=== PATIENT | male | born 1980 | race Caucasian/White ===

== ENCOUNTER 2020-09-04 09:09 | Outpatient (REF) | payer OTHER, SELFPAY ==
--- NOTE | 2020-09-04 | XR_ITS ---
EXAMINATION: XR CHEST CLINICAL INFORMATION: Right lateral and anterior chest pain COMPARISON: None TECHNIQUE: 2 views of the chest were obtained. FINDINGS: No significant abnormality is noted involving the heart, lungs, mediastinum, bony thorax or soft tissues. XR/XR chest 2V IMPRESSION: Unremarkable chest examination.
== END 2020-09-04 09:10 | disposition home or self-care (01) ==
LOC: HO.XRAY 09:09
PROVIDERS: PCP Nurse Practitioner Primary Care; Visit Provider Nurse Practitioner Primary Care
DX: U07.1 COVID-19 (principal)
CPT/HCPCS: 71046

== ENCOUNTER → 2020-12-03 11:33 | Outpatient (BNVA) | payer OTHER, SELFPAY | PROVIDERS: PCP Nurse Practitioner Primary Care; Visit Provider Physician Assistant ==

== ENCOUNTER 2020-12-26 10:25 | Day surgery (SDC) | payer OTHER, SELFPAY ==
[2020-12-26 10:48] VITALS: BP 147/84; PULSE 65; RESP 19; TEMP 36.6; O2SAT 97; BMI 45.6
--- NOTE | 2020-12-26 10:50 | P.CONAN_ITS ---
HPI - Anesthesia Eval Consult details Narrative: 40 yo male patient here for colonoscopy PMFSH Active Problems Active Problems: All Active Problems (Updated 12/23/20 @ 13:29 by Sandra Hernandez) Joint pain (Acute) Acid reflux (Acute) Past Medical History Medical History (Updated 12/26/20 @ 11:01 by [place]) Acid reflux Increased BMI Joint pain BI (obstructive sleep apnea) Personal history of COVID-19 Family History Family History (Updated 12/03/20 @ 12:17 by Apryl Ta PA-C) Father Dementia Mother Diabetes Family history of problems with anesthesia: No Surgical History Surgical History (Updated 12/23/20 @ 13:29 by Sandra Hernandez) Hx of arthroscopy of left knee (~12/05/15) Hx of arthroscopy of right knee Hx of hand surgery History of Problems with Anesthesia: No Social History Social History (Updated 12/23/20 @ 13:31 by Sandra Hernandez) Household Members: Spouse and Children Alcohol intake: current Alcohol intake frequency: holidays/special occasions only Smoking Status: Never smoker Advance Directives Information Provided: No Current occupation: [employer] Allergies Allergy/AdvReac Type Severity Reaction Status Date / Time No Known Allergies Allergy Verified 12/03/20 11:33 Home Medications Medication Instructions Recorded Confirmed Last Taken Type albuterol sulfate 90 mcg/actuation 2 puff PO Q4-6H PRN 12/03/20 12/23/20 Unknown History aerosol inhaler omeprazole 20 mg capsule,delayed 20 mg PO DAILY 12/03/20 12/23/20 Unknown History release Exam Exam Date and Time: December 26, 2020 1050 Height,Weight and Vital Signs: Height 5 ft 8 in Weight 136.078 kg Last Vital Signs Temp 97.8 F 12/26/20 10:48 Pulse 65 12/26/20 10:48 Resp 19 12/26/20 10:48 BP 147/84 H 12/26/20 10:48 Pulse Ox 97 12/26/20 10:48 Airway Mallampati Class: III TM Dist: >3cm Neck ROM: Full Loose/Missing/Broken Teeth: Yes (Broken bottom right) Heart: RRR Lungs: CTAB Assessment and Plan Assessment Anesthesia Assessment: Anesthesia Plan Discussed and Chart Reviewed Final Anesthetic Review NPO: Yes ASA Class: III Final Preanesthetic Review: No Changes in Pt Med Stat, Meds/Allgs Chart Reviewed, Consent Obtained/Reviewed and Anes Risks/Benef Reviewed Patient Risk: Intermediate Procedure Risk: Low Assessment/Block/Sedation in SS: Assess/Block/Sedation-SS Anesthetic Plan Anesthetic Plan: MAC: Disposition: Standard PACU
--- NOTE | 2020-12-26 10:56 | MHC.SHP ---
Pre-Procedural Eval Section B Chief Complaint: GERD Relevant Family History (Specify if Yes): No Relevant Social History: None Present Medications: see Short Stay Collaborative assessment Medical History: Significant History (BI, reflux) History of Previous Operations: Relevant previous surgery/procedure and date(s) (Hx of arthroscopy of left knee (~12/05/15) Hx of arthroscopy of right knee Hx of hand surgery) Allergies: Allergies Allergy/AdvReac Type Severity Reaction Status Date / Time No Known Allergies Allergy Verified 12/03/20 11:33 Review of Systems Sugical H&P ROS: Negative: Constitution, Cardiovascular, Respiratory, Neurological, Psychiatric, Hem-Onc, Allergic/Immunologic, Gastrointestinal, Genitourinary, Musculoskeletal, Integumentary, Endocrine and Eyes/Ears/Nose/Throat Exam Surgical H&P Exam: Normal: HEENT, Normal: Heart, Normal: Lungs, Normal: Extremities, Normal: Abdomen, Normal: Skin and Normal: Neurological Plan Diagnosis/Plan: Unchanged I have reviewed the history and physical and performed a pertinent physical examination on my patient. No changes have occurred unless specified.
--- NOTE | 2020-12-26 10:58 | W.PM.OPN ---
Operative Note Operative Note Date of Service: 12/26/20 Narrative: Procedure Description: EGD FLEXIBLE TRANSORAL UPPER GASTROINTESTINAL ENDOSCOPY UPPER ENDOSCOPY Consent: Indications for the procedure and potential complications of bleeding, perforation, reaction to medications and missed diagnosis were discussed with the patient and informed consent was obtained. Instrument: Olympus GIF H 190 J mid size upper endoscope Monitoring: Vital signs and clinical assessment, continuous EKG monitoring, Pulse oximetry, Carbon Dioxide monitoring and blood pressure monitoring were done throughout the procedure. Procedure: The patient was placed in the left lateral decubitis position and pre-procedure medications were administered and a bite block was placed. The endoscope was inserted into the mouth and advanced under direct vision to the third part of duodenum. A careful inspection was made as the upper endoscope was withdrawn including a retroflexed examination of the proximal stomach; Findings and interventions are described below. Findings: Larynx:normal Esophagus: GE junction at 40 cm, diaphragm hiatus at 40 cm, mild esophagitis with irregular Z line-bx taken. Also bx taken from random esophagus Stomach: Normal mucosa. Biopsies were obtained to r/o h pylori. Grade 2 flap valve on retroflexed examination of the cardia. Duodenum: Normal bulb and descending duodenum, Intervention: Biopsies as noted above Impression/Findings: esophagitis PLAN: cont with omeprazole since works well GERD lifestyle changes if h pylori pos then treat
--- NOTE | 2020-12-26 10:58 | PM.OP ---
Brief Operative Note Date of Service: 12/26/20 Pre-op diagnosis: GERD Post-op diagnosis: same Procedure: see op note Surgeon: Smith Andres MD Anesthesia: MAC Estimated blood loss (mL): 0 Condition: stable Disposition: PACU
[2020-12-26 11:39] VITALS: BP 132/77; PULSE 74; RESP 16; TEMP 36.9; O2SAT 97
[2020-12-26 11:52] VITALS: BP 141/90; PULSE 72; RESP 18; O2SAT 97
== END 2020-12-26 12:11 | disposition home or self-care (01) ==
PROVIDERS: PCP Nurse Practitioner Primary Care; Visit Provider Internal Medicine Gastroenterology
PROC: 0DJ08ZZ Inspection of Upper Intestinal Tract, Via Natural or Artificial Opening Endoscopic (ICD-10-PCS; CPT 43235; principal; 2020-12-26 11:40)
DX: K21.9 Gastro-esophageal reflux disease without esophagitis (principal); K20.90 Esophagitis, unspecified without bleeding; K44.9 Diaphragmatic hernia without obstruction or gangrene; G47.33 Obstructive sleep apnea (adult) (pediatric); Z79.899 Other long term (current) drug therapy; Z86.16 Personal history of COVID-19
CPT/HCPCS: 43239; 88305; 88342; J2250

== ENCOUNTER → 2021-01-14 10:34 | Outpatient (BNVA) | payer OTHER, SELFPAY | PROVIDERS: PCP Nurse Practitioner Primary Care; Visit Provider Physician Assistant ==

== ENCOUNTER 2021-02-07 15:23 | Outpatient (REF) | payer OTHER, SELFPAY ==
--- NOTE | ~2021-02-07 | XR_ITS ---
EXAMINATION: XR KNEE, RIGHT CLINICAL INFORMATION: Right knee pain. Instability. COMPARISON: None. TECHNIQUE: AP and lateral weightbearing views. Nonweightbearing tunnel and patellar view FINDINGS: No fracture. No dislocation. No joint effusion. No significant degenerative change. No soft tissue calcification or bone erosion. There is a small spur at the origin of the patellar tendon at the inferior pole of the patella. XR/XR knee RT 4V IMPRESSION: No acute abnormality of the knee.
== END 2021-02-07 15:24 | disposition home or self-care (01) ==
LOC: HO.XRAY 15:23
PROVIDERS: Absent Provider Nurse Practitioner Primary Care; PCP Nurse Practitioner Primary Care; Visit Provider Registered Nurse Community Health
DX: M25.561 Pain in right knee (principal); M25.361 Other instability, right knee
CPT/HCPCS: 73564

== ENCOUNTER → 2021-02-25 10:57 | Outpatient (BNVA) | payer OTHER, SELFPAY | PROVIDERS: PCP Nurse Practitioner Primary Care; Visit Provider Orthopaedic Surgery ==

== ENCOUNTER 2021-03-05 07:44 | Outpatient (REF) | payer OTHER, SELFPAY | END 2021-03-05 07:45 | disposition home or self-care (01) | LOC: HO.HOSX 07:44 | PROVIDERS: Visit Provider Orthopaedic Surgery | DX: Z13.89 Encounter for screening for other disorder (principal) ==

== ENCOUNTER → 2021-04-08 13:09 | Outpatient (BNVA) | payer OTHER, SELFPAY | PROVIDERS: PCP Nurse Practitioner Primary Care; Visit Provider Physician Assistant ==

== ENCOUNTER 2021-04-15 11:50 | Emergency (ER) | payer OTHER, SELFPAY ==
--- NOTE | ~2021-04-15 | CT_ITS ---
EXAMINATION: CT abdomen pelvis w con CLINICAL INFORMATION: Reason for Exam RLQ/RUQ/epigstric ttp COMPARISON: 2017 TECHNIQUE: Multidetector volumetric imaging was performed from the superior aspect of the liver through the pubic symphysis 85 mL Omnipaque 350 injected. Sagittal and coronal reformatted images were obtained on the technologist's workstation. This CT examination was performed using dose optimization techniques as appropriate, variously including the following: *Automated exposure control *Adjustment of mA and/or kV according to patient size (this includes techniques or standardized protocols for targeted exams where dose is matched to indication/reason for exam; i.e. extremities or head) *Use of iterative reconstruction technique DLP: 1292 mGy-cm FINDINGS: LOWER THORAX: Included lung bases are clear. HEPATOBILIARY: No focal hepatic lesions. No biliary ductal dilatation. GALLBLADDER: Gallbladder unremarkable. SPLEEN: Spleen is normal in size. PANCREAS: No focal mass or ductal dilatation. STOMACH AND GASTROINTESTINAL TRACT: Stomach is grossly unremarkable. There is no bowel distention or thickening. There is mild diverticulosis without CT evidence of acute diverticulitis. ADRENALS: No adrenal nodules. KIDNEYS/URETERS: There is 4 mm nonobstructing stone in the right kidney. There is no hydronephrosis. There is a 2 mm nonobstructing stone in the left kidney. URINARY BLADDER: Partially decompressed. PELVIC VISCERA: Unremarkable PERITONEUM: No free air or fluid. LYMPH NODES: No lymphadenopathy. VASCULAR:Abdominal aorta normal in size, no aneurysm found. BONES, ABDOMINAL WALL AND SOFT TISSUES: Age-appropriate changes of the spine and skeletal system, no destructive osteolytic or osteosclerotic bone lesion found CT/CT abdomen pelvis w con IMPRESSION: 1. No CT evidence of acute intra-abdominal process to explain patient's pain symptoms, normal appendix. 2. There is diverticulosis without evidence of acute diverticulitis. 3. Bilateral nonobstructing kidney stones. No hydronephrosis.
[2021-04-15 13:02] VITALS: BP 131/83; PULSE 75; RESP 18; TEMP 36.7; O2SAT 95; BMI 49.2
[2021-04-15 14:25] LABS: MANUAL DIFF FLAG NO
[2021-04-15 14:28] LABS: Basophils Percent Auto 0.4 % (0-2); Eosinophils Absolute Auto 0.1 X10*3/uL (0.0-0.4); Eosinophils Percent Auto 1.3 % (0-4); Hematocrit 46.4 % (42-52); Hemoglobin 15.5 g/dl (14.0-18.0); Imm Gran Abs Auto 0.02 X10*3/uL (0.00-0.03); Imm Gran Pct Auto 0.3 % (0.0-0.4); Lymphocytes Absolute Auto 2.5 X10*3/uL (1.2-4.9); Lymphocytes Percent Auto 35.5 % (20-40); Mean Corpuscular HGB Conc 33.4 g/dl (31.0-36.0); Mean Corpuscular Hemoglobin 29.4 pg (27.0-33.0); Mean Corpuscular Volume 87.9 fL (80-98); Mean Platelet Volume 10.2 fL (9.4-12.4); Monocytes Absolute Auto 0.5 X10*3/uL (0.1-1.2); Monocytes Percent Auto 6.9 % (2-11); Neutrophils Absolute Auto 3.8 X10*3/uL (2.0-8.3); Neutrophils Percent Auto 55.6 % (45-73); Platelet Count 306 X10*3/uL (160-400); Red Blood Count 5.28 X10*6/uL (4.60-5.80); Red Cell Distribution Width 11.8 % (11.0-16.0); White Blood Count 6.9 X10*3/uL (4.8-10.8)
[2021-04-15 14:53] LABS: Alanine Aminotransferase 67 U/L (0-40); Albumin Level 4.7 g/dL (3.5-5.0); Alkaline Phosphatase 92 U/L (39-117); Anion Gap 15 (12-20); Aspartate Amino Transferase 35 U/L (5-37); Bilirubin Total 0.4 mg/dL (0.0-1.0); Blood Urea Nitrogen 10 mg/dL (9-16); Calcium 9.6 mg/dL (8.4-10.2); Carbon Dioxide 22 mmol/L (22-29); Chloride 104 mmol/L (96-108); Creatinine Clr Calc Pharmacy 146.1; Estimated Glomerular Filt Rate > 60; Glucose Random 89 mg/dL (60-115); Lipase 24 U/L (8-78); Potassium 4.2 mmol/L (3.3-5.1); Sodium 137 mmol/L (135-145); Total Protein 7.9 g/dL (6.5-8.0)
--- NOTE | 2021-04-15 16:33 | ED_ITS ---
HPI - Abdominal Pain General Chief Complaint: Abdominal Pain Stated Complaint: abd pain Time Seen by Provider: 04/15/21 16:22 Source: patient Mode of arrival: ambulatory History of Present Illness HPI narrative: 40-year-old male with a past medical history of GERD, BI, presenting to the ED complaining of RUQ/epigastric and RLQ abdominal pain x4 days with associated nausea and constipation. Reports diarrhea after taking MiraLax/OTCs. Denies fever, chills, vomiting, dysuria/hematuria, suspicious food intake, recent travel MD elicited complaint: abdominal pain Related Data Home Medications Medication Instructions Recorded Confirmed albuterol sulfate 90 mcg/actuation 2 puff PO Q4-6H PRN 12/03/20 04/02/21 aerosol inhaler ibuprofen 800 mg tablet 800 mg PO Q8H 02/25/21 04/02/21 Previous Rx's Medication Instructions Recorded omeprazole 20 mg capsule,delayed 20 mg PO DAILY #30 cap 01/14/21 release aluminum-mag hydroxide-simethicone 5 ml PO 5XD PRN #30 ml 04/15/21 200 mg-200 mg-20 mg/5 mL oral susp (Maalox Advanced) famotidine 20 mg tablet (Pepcid) 20 mg PO DAILY #14 tab 04/15/21 Allergies Allergy/AdvReac Type Severity Reaction Status Date / Time Seasonal Allergies AdvReac Unknown Verified 02/25/21 11:07 Review of Systems Review of Systems Constitutional: No Fever, No Chills, No Fatigue, No Malaise ENT/Mouth: No Ear Pain, No Nasal Congestion, No sore throat, No Rhinorrhea, No Swallowing Difficulty Eyes: No Eye Pain, No Discharge Cardiovascular: No Chest Pain, No SOB, No Palpitations Respiratory: No Cough, No Dyspnea Gastrointestinal: + Nausea, No Vomiting, No Diarrhea, + Constipation, + Abdominal pain Genitourinary: No Dysuria, No Urinary Frequency, No Hematuria, No Flank Pain, No Urinary Flow Changes Musculoskeletal: No joint pain, No Myalgias, No Joint Swelling Skin: No Skin Lesions, No rash Neuro: No Weakness, No Numbness, No Paresthesias Yes all other systems are reviewed and are negative Physical Exam Vital Signs: Vital Signs: Last Vital Signs Temp 98.1 F 04/15/21 13:02 Pulse 75 04/15/21 13:02 Resp 18 04/15/21 13:02 BP 131/83 04/15/21 13:02 Pulse Ox 95 04/15/21 13:02 Body Mass Index 49.2 Const: General: cooperative and healthy appearing Orientation/consciousness: patient oriented x3 Limitations: no limitations HENMT: Head: Yes normal to inspection and Yes atraumatic Ears: hearing grossly normal bilaterally General nose exam: Normal external nose present Face and sinus: Yes normal facial exam Eyes: General: appearance normal, both eyes and all related structures EOM: EOMs intact bilaterally Neck: Neck: Yes normal visual inspection Resp: Effort & Inspection: normal respiratory effort Cardio: Rate: regular rate GI: Inspection: Yes normal to inspection Palpation (GI): Soft to palpation, Tenderness to palpation present (GI) in the epigastrum, in the RLQ and in the RUQ, no guarding and not rigid : General: Yes CVA tenderness on the right Back/Spine/Pelvis: Back: CVA tenderness Skin: Rashes: no rashes Wounds: no wounds Neuro: General: patient oriented x3 Gait exam (Neuro): Normal gait present Extrem: General: Yes normal to inspection Course Course Course Narrative: -1848--no leukocytosis, ALT mildly elevated, labs otherwise unremarkable -UA negative CT abdomen pelvis w con IMPRESSION: 1. No CT evidence of acute intra-abdominal process to explain patient's pain symptoms, normal appendix. 2. There is diverticulosis without evidence of acute diverticulitis. 3. Bilateral nonobstructing kidney stones. No hydronephrosis. >> results discussed with patient including worrisome signs and symptoms and strict return precautions. Patient is to follow-up with PCP/GI, he verbalized understanding of is safe for discharge home MDM - Abdominal Pain MDM Narrative Medical decision making narrative: 40-year-old male with a past medical history of GERD, BI, presenting to the ED complaining of RUQ/epigastric and RLQ abdominal pain x4 days with associated nausea and constipation. On exam VSS, NAD/well appearing, abdomen soft with RUQ/epigastric and RLQ tenderness to palpation. R CVAT on exam as well. Concern for appendicitis vs cholecystitis/cholelithiasis or pancreatitis vs renal stone. Plan: Labs, UA, CT, IVF, symptomatic treatment, reassess Medical Records Attestation: I reviewed the patient's medical records. Lab Data Attestation: I reviewed the patient's lab results. Result diagrams: 04/15/21 14:16 04/15/21 14:16 Labs: Lab Results 04/15/21 04/15/21 04/15/21 Range/Units 14:16 14:16 14:16 WBC 6.9 (4.8-10.8) X10*3/uL RBC 5.28 (4.60-5.80) X10*6/uL Hgb 15.5 (14.0-18.0) g/dl Hct 46.4 (42-52) % MCV 87.9 (80-98) fL MCH 29.4 (27.0-33.0) pg MCHC 33.4 (31.0-36.0) g/dl RDW 11.8 (11.0-16.0) % Plt Count 306 (160-400) X10*3/uL MPV 10.2 (9.4-12.4) fL Immature Gran % (Auto) 0.3 (0.0-0.4) % Neut % (Auto) 55.6 (45-73) % Lymph % (Auto) 35.5 (20-40) % [place] % (Auto) 6.9 (2-11) % Eos % (Auto) 1.3 (0-4) % Baso % (Auto) 0.4 (0-2) % Lymph # (Auto) 2.5 (1.2-4.9) X10*3/uL [place] # (Auto) 0.5 (0.1-1.2) X10*3/uL Eos # (Auto) 0.1 (0.0-0.4) X10*3/uL Baso # (Auto) 0.0 (0.0-0.2) X10*3/uL Abs Immat Gran (auto) 0.02 (0.00-0.03) X10*3/uL Absolute Neuts (auto) 3.8 (2.0-8.3) X10*3/uL Absolute Nucleated RBC 0.000 (0.0-0.012) X10*3/uL Nucleated RBC % (auto) 0.0 (0.0-0.2) /100WBC Sodium 137 (135-145) mmol/L Potassium 4.2 (3.3-5.1) mmol/L Chloride 104 (96-108) mmol/L Carbon Dioxide 22 (22-29) mmol/L Anion Gap 15 (12-20) BUN 10 (9-16) mg/dL Creatinine 0.93 (0.5-1.4) mg/dL Estim Creat Clear Calc 146.1 Estimated GFR > 60 Random Glucose 89 (60-115) mg/dL Calcium 9.6 (8.4-10.2) mg/dL Magnesium 2.3 (1.6-2.6) mg/dL Total Bilirubin 0.4 (0.0-1.0) mg/dL AST 35 (5-37) U/L ALT 67 H (0-40) U/L Alkaline Phosphatase 92 (39-117) U/L Total Protein 7.9 (6.5-8.0) g/dL Albumin 4.7 (3.5-5.0) g/dL Lipase 24 (8-78) U/L Urine Color Urine Appearance Urine pH (5.0-8.0) Ur Specific [place] (1.005-1.025) Urine Protein (NEG-TRACE) MG/DL Urine Glucose (UA) (NEG) MG/DL Urine Ketones (NEG) MG/DL Urine Blood (NEG) Urine Nitrite (NEG) Ur Leukocyte Esterase (NEG) 04/15/21 Range/Units 18:00 WBC (4.8-10.8) X10*3/uL RBC (4.60-5.80) X10*6/uL Hgb (14.0-18.0) g/dl Hct (42-52) % MCV (80-98) fL MCH (27.0-33.0) pg MCHC (31.0-36.0) g/dl RDW (11.0-16.0) % Plt Count (160-400) X10*3/uL MPV (9.4-12.4) fL Immature Gran % (Auto) (0.0-0.4) % Neut % (Auto) (45-73) % Lymph % (Auto) (20-40) % [place] % (Auto) (2-11) % Eos % (Auto) (0-4) % Baso % (Auto) (0-2) % Lymph # (Auto) (1.2-4.9) X10*3/uL [place] # (Auto) (0.1-1.2) X10*3/uL Eos # (Auto) (0.0-0.4) X10*3/uL Baso # (Auto) (0.0-0.2) X10*3/uL Abs Immat Gran (auto) (0.00-0.03) X10*3/uL Absolute Neuts (auto) (2.0-8.3) X10*3/uL Absolute Nucleated RBC (0.0-0.012) X10*3/uL Nucleated RBC % (auto) (0.0-0.2) /100WBC Sodium (135-145) mmol/L Potassium (3.3-5.1) mmol/L Chloride (96-108) mmol/L Carbon Dioxide (22-29) mmol/L Anion Gap (12-20) BUN (9-16) mg/dL Creatinine (0.5-1.4) mg/dL Estim Creat Clear Calc Estimated GFR Random Glucose (60-115) mg/dL Calcium (8.4-10.2) mg/dL Magnesium (1.6-2.6) mg/dL Total Bilirubin (0.0-1.0) mg/dL AST (5-37) U/L ALT (0-40) U/L Alkaline Phosphatase (39-117) U/L Total Protein (6.5-8.0) g/dL Albumin (3.5-5.0) g/dL Lipase (8-78) U/L Urine Color YELLOW Urine Appearance CLEAR Urine pH 6.0 (5.0-8.0) Ur Specific Kil[place] <= 1.005 (1.005-1.025) Urine Protein NEG (NEG-TRACE) MG/DL Urine Glucose (UA) NEG (NEG) MG/DL Urine Ketones NEG (NEG) MG/DL Urine Blood NEG (NEG) Urine Nitrite NEG (NEG) Ur Leukocyte Esterase NEG (NEG) Discharge Plan Discharge Clinical Impression: Abdominal pain Qualifiers: Abdominal location: right lower quadrant Qualified Code(s): R10.31 - Right lower quadrant pain Patient Disposition: Home, Self-Care Instructions: Abdominal Pain (ED) Additional Instructions: Your blood work and CT scan were reassuring, did not show any acute abnormalities new line your urine was negative Maalox and Pepcid will help with acid reduction it is important that you follow-up with her primary care doctor If her symptoms persist or worsen, your abdominal pain becomes more constant/unremitting, you are unable to eat or drink please return to the ED Please follow-up with the GI specialist as needed Prescriptions: New famotidine [Pepcid] 20 mg tablet 20 mg PO DAILY Qty: 14 RF: 0 alum-mag hydroxide-simeth [Maalox Advanced] 200-200-20 mg/5 mL suspension 5 ml PO 5XD PRN (Reason: indigestion) Qty: 30 RF: 0 No Action albuterol sulfate 90 mcg/actuation HFA aerosol inhaler 2 puff PO Q4-6H PRN (Reason: Shortness Of Breath) RF: 0 omeprazole 20 mg capsule,delayed release(DR/EC) 20 mg PO DAILY Qty: 30 RF: 11 Referrals: Niecy Hussein NP [Primary Care Provider] - 2 days Mia Duran MD [Physician] - 1 week PMF Past Medical History Attestation statement: The following information was validated with the patient. Medical History Acid reflux Hx of renal calculi Increased BMI Joint pain BI (obstructive sleep apnea) Personal history of COVID-19 Surgical History History of esophagogastroduodenoscopy (EGD) Hx of arthroscopy of left knee (~12/05/15) Hx of arthroscopy of right knee Hx of hand surgery Family History Family History Father Dementia Mother Diabetes Social History Social History Household Members: Spouse and Children Are you a primary landcare officer to a significant other at home: No Alcohol intake: current Alcohol intake frequency: holidays/special occasions only Patient Tobacco Use Status: Never used Tobacco Current occupation: HVAC
[2021-04-15] MEDS: Ketorolac Tromethamine 15 MG/ML VIAL IVPUSH (16:42)
[2021-04-15] MEDS: 0.9 % Sodium Chloride 1,000 ML 999 ML IVCONT (16:42)
[2021-04-15] MEDS: ondansetron HCL 4 MG/2 ML VIAL IVPUSH (16:42)
[2021-04-15] MEDS: iohexoL 350 MG/ML 100 ML INFUS..BTL IV (17:05)
[2021-04-15 17:48] LABS: Magnesium 2.3 mg/dL (1.6-2.6)
[2021-04-15 18:09] LABS: Glucose Urine UA NEG (NEG); Leukocyte Esterase Urine NEG (NEG); Nitrite Urine NEG (NEG); Specific Gravity - Urine <= 1.005 (1.005-1.025); Urine Blood NEG (NEG); Urine Ketones NEG (NEG); Urine Protein NEG (NEG-TRACE)
[2021-04-15 18:12] LABS: Appearance Urine CLEAR; Color Urine YELLOW
== END 2021-04-15 19:26 | disposition home or self-care (01) ==
PROVIDERS: Physician Assistant; Emergency Provider Emergency Medicine; PCP Nurse Practitioner Primary Care
DX: R10.31 Right lower quadrant pain (principal); R11.0 Nausea
CPT/HCPCS: 36415; 74177; 80053; 81003; 83690; 83735; 85025; 96361; 96374; 96375; 99284; J1885; J2405; Q9967

== ENCOUNTER 2021-04-17 07:48 | Day surgery (SDC) | payer OTHER, SELFPAY ==
[2021-04-02 15:17] VITALS: BMI 45.7
--- NOTE | 2021-04-07 14:00 | HO.ANESPROP2 ---
HPI - Anesthesia Eval Consult details Narrative: 40yo M for Right Knee Arthroscopy PMFSH Active Problems Active Problems: All Active Problems (Updated 04/02/21 @ 15:21 by Sandra Hernandez) Complex tear of medial meniscus of right knee as current injury (Acute) Increased BMI (Acute) BI (obstructive sleep apnea) (Acute) Joint pain (Acute) Acid reflux (Acute) Past Medical History Medical History (Updated 04/02/21 @ 15:21 by Sandra Hernandez) Acid reflux Hx of renal calculi Increased BMI Joint pain BI (obstructive sleep apnea) Personal history of COVID-19 Family History Family History (Reviewed 02/25/21 @ 11:09 by Alicia Kurtz [facility]) Father Dementia Mother Diabetes Family history of problems with anesthesia: No Surgical History Surgical History (Updated 04/02/21 @ 14:59 by Sandar Hernandez) History of esophagogastroduodenoscopy (EGD) Hx of arthroscopy of left knee (~12/05/15) Hx of arthroscopy of right knee Hx of hand surgery History of Problems with Anesthesia: No Social History Social History (Reviewed 02/25/21 @ 11:09 by Alicia Kurtz [facility]) Household Members: Spouse and Children Are you a primary associate director career services to a significant other at home: No Alcohol intake: current Alcohol intake frequency: holidays/special occasions only Patient Tobacco Use Status: Never used Tobacco Use of substances other than those prescribed or required for medical reasons: No Have you been hit, kicked, punched, or otherwise hurt by someone within the past year? If so, by whom?: No Are you DNR?: No Advance Directives: No Advance Directives Information Provided: Yes (states is girlfriend but not sure if has official HCP form) Advance Directives on File: No Recently lost weight without trying: No Nutrition Risks: No Nutritional Risk Poor oral hygiene: No Current occupation: HV[employer] Meds Allergies Allergy/AdvReac Type Severity Reaction Status Date / Time Seasonal Allergies AdvReac Unknown Verified 02/25/21 11:07 Home Medications Medication Instructions Recorded Confirmed Last Taken Type albuterol sulfate 90 mcg/actuation 2 puff PO Q4-6H PRN 12/03/20 04/02/21 Unknown History aerosol inhaler ibuprofen 800 mg tablet 800 mg PO Q8H 02/25/21 04/02/21 Unknown History Exam Exam Date and Time: April 07, 2021 1400 Height,Weight and Vital Signs: Height 5 ft 8 in Weight 136.36 kg Assessment and Plan Assessment Anesthesia Assessment: Chart Reviewed Final Anesthetic Review Family History of Problems with Anesthesia: No History of Problems with Anesthesia: No
--- NOTE | 2021-04-16 08:13 | HO.ANESPROP2 ---
Documented by User: Jaylin Howell NP 04/16/21 08:15 HPI - Anesthesia Eval Consult details Narrative: 40yp M for Right Knee Arthroscopy [facility] 04/15/21 with abdominal pain. Labs, Urine, CT all WNL. PMFSH Active Problems Active Problems: All Active Problems (Updated 04/16/21 @ 00:00 by Nely Damarcus) Complex tear of medial meniscus of right knee as current injury (Acute) Increased BMI (Acute) BI (obstructive sleep apnea) (Acute) Joint pain (Acute) Acid reflux (Acute) Past Medical History Medical History Acid reflux Hx of renal calculi Increased BMI Joint pain BI (obstructive sleep apnea) Personal history of COVID-19 Family History Family History Father Dementia Mother Diabetes Family history of problems with anesthesia: No Surgical History Surgical History History of esophagogastroduodenoscopy (EGD) Hx of arthroscopy of left knee (~12/05/15) Hx of arthroscopy of right knee Hx of hand surgery History of Problems with Anesthesia: No Social History Social History Household Members: Spouse and Children Are you a primary infant childcare provider to a significant other at home: No Alcohol intake: current Alcohol intake frequency: holidays/special occasions only Patient Tobacco Use Status: Never used Tobacco Use of substances other than those prescribed or required for medical reasons: No Have you been hit, kicked, punched, or otherwise hurt by someone within the past year? If so, by whom?: No Are you DNR?: No Advance Directives: No Advance Directives Information Provided: Yes (states is girlfriend but not sure if has official HCP form) Advance Directives on File: No Recently lost weight without trying: No Nutrition Risks: No Nutritional Risk Poor oral hygiene: No Current occupation: HVAC Meds Allergies Allergy/AdvReac Type Severity Reaction Status Date / Time Seasonal Allergies AdvReac Unknown Verified 02/25/21 11:07 Home Medications Medication Instructions Recorded Confirmed Last Taken Type albuterol sulfate 90 mcg/actuation 2 puff PO Q4-6H PRN 12/03/20 04/02/21 Unknown History aerosol inhaler ibuprofen 800 mg tablet 800 mg PO Q8H 02/25/21 04/02/21 Unknown History Exam Exam Date and Time: April 16, 2021 08 Height,Weight and Vital Signs: Height 5 ft 8 in Weight 136.36 kg Assessment and Plan Assessment Anesthesia Assessment: Chart Reviewed Final Anesthetic Review Family History of Problems with Anesthesia: No History of Problems with Anesthesia: No Documented by User: Nitin Llanes MD 04/17/21 08:19 PMFSH Past Medical History Medical History Acid reflux Hx of renal calculi Increased BMI Joint pain BI (obstructive sleep apnea) Personal history of COVID-19 Family History Family History Father Dementia Mother Diabetes Surgical History Surgical History History of esophagogastroduodenoscopy (EGD) Hx of arthroscopy of left knee (~12/05/15) Hx of arthroscopy of right knee Hx of hand surgery Social History Social History Household Members: Spouse and Children Are you a primary infant childcare provider to a significant other at home: No Alcohol intake: current Alcohol intake frequency: holidays/special occasions only Patient Tobacco Use Status: Never used Tobacco Use of substances other than those prescribed or required for medical reasons: No Have you been hit, kicked, punched, or otherwise hurt by someone within the past year? If so, by whom?: No Are you DNR?: No Advance Directives: No Advance Directives Information Provided: Yes (states is girlfriend but not sure if has official HCP form) Advance Directives on File: No Recently lost weight without trying: No Nutrition Risks: No Nutritional Risk Poor oral hygiene: No Current occupation: HVAC Meds Allergies Allergy/AdvReac Type Severity Reaction Status Date / Time Seasonal Allergies AdvReac Unknown Verified 02/25/21 11:07 Home Medications Medication Instructions Recorded Confirmed Last Taken Type albuterol sulfate 90 mcg/actuation 2 puff PO Q4-6H PRN 12/03/20 04/02/21 Unknown History aerosol inhaler ibuprofen 800 mg tablet 800 mg PO Q8H 02/25/21 04/02/21 Unknown History Exam Airway Mallampati Class: II TM Dist: >3cm Neck ROM: Limited Loose/Missing/Broken Teeth: No Assessment and Plan Assessment Anesthesia Assessment: Anesthesia Plan Discussed Final Anesthetic Review NPO: Yes ASA Class: III Final Preanesthetic Review: No Changes in Pt Med Stat, Meds/Allgs Chart Reviewed, Consent Obtained/Reviewed and Anes Risks/Benef Reviewed Patient Risk: High Procedure Risk: Low Anesthetic Plan Anesthetic Plan: GA Disposition: Standard PACU
--- NOTE | 2021-04-17 07:41 | MHC.SHP ---
Pre-Procedural Eval Section A Date of Service: 04/17/21 The patient is an INPATIENT: No Changes since office visit: No Cold of Flu in the past 2 weeks, No New Medical Problems, No Changes in Medication and No Patient answered all questions The History & Physical has been completed within 30 days and I have reviewed it.: Yes Section B Chief Complaint: Complex medial mensicus tear Allergies: Allergies Allergy/AdvReac Type Severity Reaction Status Date / Time Seasonal Allergies AdvReac Unknown Verified 02/25/21 11:07 Plan I have reviewed the history and physical and performed a pertinent physical examination on my patient. No changes have occurred unless specified.
[2021-04-17 08:00] VITALS: BP 111/64; PULSE 67; RESP 16; TEMP 36.4; O2SAT 96
[2021-04-17] MEDS: Lactated Ringers 1,000 ML 100 ML IVCONT (08:21)
[2021-04-17 10:16] VITALS: BP 121/71; PULSE 79; RESP 16; TEMP 36.3; O2SAT 97
[2021-04-17 10:21] VITALS: BP 106/72; PULSE 75; RESP 16; O2SAT 97
[2021-04-17 10:25] VITALS: BP 117/69; PULSE 71; RESP 16; O2SAT 92
[2021-04-17 10:30] VITALS: BP 118/69; PULSE 71; RESP 16; O2SAT 93
--- NOTE | 2021-04-17 10:36 | P.OP_ITS ---
Operative Note Operative Note Date of Service: 04/17/21 Narrative: ARTHROSCOPIC SURGERY NOTE SURGEON: Dr Maikel Vieyra) [employer] TOOL MACHINE SETUP OPERATOR: PREOP DIAGNOSIS: Medial meniscal tear right knee POSTOP DIAGNOSIS: same with grade 3 medial femoral condylar injury OPERATIVE PROCEDURE: medial meniscectomy right knee with debridement medial femoral condyle right knee CLINICAL NOTE: this gentleman has ongoing problem with pain discomfort on the inner aspect of his right knee. He failed off management. He is scheduled for surgery while ago but time for a comp to approve but after continuing to have a symptoms and explaining the risks, benefits, alternatives of the surgery and answered all his questions it was me should great upon care following procedure MOTION: Full range of motion STABILITY: Cruciate and collateral ligaments intact OPERATIVE DETAILS PREPARATION: GA, STANDARD TECHNIQUE, tourniquet E to 300 mm of mercury for 12 minutes SURGICAL TIME-OUT: Patient identified; procedure confirmed; site confirmed. Medical and allergy history reviewed. No preoperative antibiotics. No DVT prophylaxis. All other items discussed and agreed upon. INCISIONS: Superolateral, inferolateral, inferomedial stab incisions SYNOVIUM: Normal SYNOVIAL FLUID: Clear MEDIAL COMPARTMENT: there was complex tearing posterior horn medial meniscus with the this tacked segment that was flipped underneath. This was all resected using a combination of handheld cutters and power shaver to stable meniscus. The medial femoral condyle had some grade 3 injury with loose articular cartilage over the weight-bearing surface which was debrided. The remainder of it was stable. The tibial articular surface was intact. INTERCONDYLAR NOTCH: ACL visualized palpated intact. PCL palpated intact. LATERAL COMPARTMENT: The lateral meniscus, tibial and femoral articular surface, and popliteus tendon were all stable and intact ANTERIOR COMPARTMENT: medial and lateral gutters were clear. Suprapatellar pouch was clear. Patella and femoral sulcus articular surfaces were intact CLOSURE: 30 cc of 0.25% Marcaine with epinephrine injected in the knee. Steri- Strips and sterile dressing then applied. RECOMMENDATIONS: 1)Restore motion strength 2)Resume activities as tolerated 3)Discharge today with prescription for analgesic 4)Follow up in the office in 10-14 days
[2021-04-17 10:45] VITALS: BP 126/78; PULSE 64; RESP 16; TEMP 36.2; O2SAT 98
[2021-04-17] MEDS: Acetaminophen 325 MG TABLET 975 MG PO (10:45)
== END 2021-04-17 11:33 | disposition home or self-care (01) ==
PROVIDERS: PCP Nurse Practitioner Primary Care; Visit Provider Orthopaedic Surgery
PROC: (CPT 29870; principal; 2021-04-17 09:40)
DX: S83.231A Complex tear of medial meniscus, current injury, right knee, initial encounter (principal); M17.11 Unilateral primary osteoarthritis, right knee; G47.33 Obstructive sleep apnea (adult) (pediatric); X58.XXXA Exposure to other specified factors, initial encounter; Y93.9 Activity, unspecified; Y92.9 Unspecified place or not applicable; Y99.8 Other external cause status; J30.2 Other seasonal allergic rhinitis; Z79.1 Long term (current) use of non-steroidal anti-inflammatories (NSAID); Z79.899 Other long term (current) drug therapy; Z86.16 Personal history of COVID-19
CPT/HCPCS: 29881; J0171; J1100; J2250; J2405; J3010

== ENCOUNTER → 2021-04-29 11:07 | Outpatient (BNVA) | payer OTHER, SELFPAY | PROVIDERS: Visit Provider Physician Assistant ==

== ENCOUNTER → 2021-05-16 07:55 | Outpatient (BNVA) | payer OTHER, SELFPAY | PROVIDERS: Visit Provider Physician Assistant | DX: Z98.890 Other specified postprocedural states (principal) | CPT/HCPCS: 99212 ==

== ENCOUNTER 2021-05-25 00:31 | Emergency (ER) | payer OTHER, SELFPAY ==
--- NOTE | ~2021-05-25 | CT_ITS ---
EXAMINATION: CT ABDOMEN AND PELVIS WITHOUT CONTRAST CLINICAL INFORMATION: Right flank and lower abdominal pain with hematuria COMPARISON: 04/15/2021 TECHNIQUE: Multidetector volumetric imaging was performed from the superior aspect of the liver through the pubic symphysis. Sagittal and coronal reformatted images were obtained on the technologist's workstation. This CT examination was performed using dose optimization techniques as appropriate, variously including the following: *Automated exposure control *Adjustment of mA and/or kV according to patient size (this includes techniques or standardized protocols for targeted exams where dose is matched to indication/reason for exam; i.e. extremities or head) *Use of iterative reconstruction technique DLP: 1351 mGy-cm FINDINGS: LUNG BASES: The visualized lung bases are unremarkable. LIVER, GALLBLADDER, AND BILIARY TREE: The liver is normal in size, shape, and attenuation. No focal hepatic lesion or biliary ductal dilatation is present. The gallbladder is unremarkable with no evidence of radiopaque gallstones, gallbladder wall thickening, or obvious pericholecystic inflammatory changes. PANCREAS: Unremarkable. SPLEEN: Unremarkable. ADRENAL GLANDS: Unremarkable. KIDNEYS AND URETERS: There is a 4 mm calcification at or just beyond the right ureterovesicular junction with mild hydronephrosis and perinephric stranding. No left hydronephrosis. There is a 3 mm mid left renal calculus. BLADDER: Partially distended. As noted above, there is a 4 mm calculus at or just beyond the right ureterovesicular junction. GASTROINTESTINAL TRACT: Colonic diverticulosis is noted. The small and large bowel are otherwise unremarkable without evidence of obstruction or pericolonic inflammatory change. The appendix is unremarkable. No free fluid or free air is seen. ABDOMINAL WALL: No significant hernia is appreciated. LYMPH NODES: Normal. VASCULAR: Unremarkable. PELVIC VISCERA: Unremarkable. OSSEOUS STRUCTURES: There is facet arthropathy at L4-L5. Endplate osteophytes noted in the visualized thoracic spine. CT/CT abdomen pelvis wo con IMPRESSION: 1. Calculus measuring 4 mm at or just beyond the right ureterovesicular junction with mild hydronephrosis. 2. Left renal calculus without hydronephrosis.
[2021-05-25 00:48] VITALS: BP 132/64; PULSE 80; RESP 18; O2SAT 98; BMI 60.3
--- NOTE | 2021-05-25 00:59 | ED_ITS ---
HPI - Male Genitourinary General Chief complaint: Urogenital-Male Stated complaint: can't urinate, right side pain Time Seen by Provider: 05/25/21 00:51 History of Present Illness HPI Narrative: Patient states this morning he woke up and had 1st brown and then pain can then red urine. Shortly after that he developed right flank pain which is gradually migrated into his right lower abdomen. He states the pain is 10/10. Positive nausea vomiting. No diarrhea or constipation. Some dysuria. He states he has a history of a kidney stone but does not remember hurting this bad. No history of abdominal surgery. He states he feels like he has to urinate but only urinate small amounts Related Data Home Medications Medication Instructions Recorded Confirmed albuterol sulfate 90 mcg/actuation 2 puff PO Q4-6H PRN 12/03/20 04/02/21 aerosol inhaler ibuprofen 800 mg tablet 800 mg PO Q8H 02/25/21 04/02/21 Previous Rx's Medication Instructions Recorded omeprazole 20 mg capsule,delayed 20 mg PO DAILY #30 cap 01/14/21 release aluminum-mag hydroxide-simethicone 5 ml PO 5XD PRN #30 ml 04/15/21 200 mg-200 mg-20 mg/5 mL oral susp (Maalox Advanced) famotidine 20 mg tablet (Pepcid) 20 mg PO DAILY #14 tab 04/15/21 acetaminophen 300 mg-codeine 30 mg 1 tab PO Q4-6H PRN 7 Days #20 tab 04/17/21 tablet oxycodone-acetaminophen 5 mg-325 1 tab PO Q6H PRN #10 tab 05/25/21 mg tablet (Percocet) tamsulosin 0.4 mg capsule (Flomax) 0.4 mg PO DAILY #10 cap 05/25/21 Allergies Allergy/AdvReac Type Severity Reaction Status Date / Time Seasonal Allergies AdvReac Unknown Verified 05/16/21 08:01 Review of Systems Constitutional: Constitutional: Denies fever(s) Cardiovascular: Comments: No chest pain Respiratory: Comments: No dyspnea or cough Gastrointestinal: Comments: Abdominal pain as described in HPI Genitourinary: Comments: Dysuria and hematuria PMFSH Past Medical History Medical History Acid reflux Hx of renal calculi Increased BMI Joint pain BI (obstructive sleep apnea) Personal history of COVID-19 Surgical History History of esophagogastroduodenoscopy (EGD) Hx of arthroscopy of left knee (~12/05/15) Hx of arthroscopy of right knee Hx of hand surgery Family History Family History Father Dementia Mother Diabetes Social History Social History Household Members: Spouse and Children Are you a primary adult daycare coordinator to a significant other at home: No Alcohol intake: current Alcohol intake frequency: holidays/special occasions only Patient Tobacco Use Status: Never used Tobacco Advance Directives: No Advance Directives Information Provided: Yes Current occupation: HVAC Physical Exam Vital Signs: Vital Signs: Last Vital Signs Pulse 80 05/25/21 00:48 Resp 18 05/25/21 01:32 BP 132/64 05/25/21 00:48 Pulse Ox 98 05/25/21 00:48 Body Mass Index 60.3 Const: Other: Awake and alert in some acute distress Resp: Other: Clear and equal bilaterally without wheezes rales or rhonchi Cardio: Other: Regular rate and rhythm no murmurs rubs or gallops GI: Other: Tender right lower mid abdomen. Right flank tenderness to percussion. Some guarding no rebound. Bowel sounds are normal. Abdomen is soft Skin: Other: Warm pink and dry without rash Neuro: Other: No focal deficits Course Course Course Narrative: Kidney stone Pyelonephritis Post obstructive pyelonephritis Hematuria Urinary tract infection Cystitis Appendicitis much less likely IV fluids IV Toradol IV Dilaudid IV Zofran CT scan and labs 1:55 a.m.. Patient is feeling considerably better. CT scan reveals 4 mm stone either at or beyond the UVJ with [id number] hydronephrosis. Urinalysis shows no evidence of infection. Remainder of labs are unremarkable She is stable for discharge home MDM - Male Genitourinary Lab Data Result diagrams: 05/25/21 01:23 05/25/21 01:23 Labs: Lab Results 05/25/21 05/25/21 Range/Units 01:23 01:38 WBC 11.9 H (4.8-10.8) X10*3/uL RBC 4.91 (4.60-5.80) X10*6/uL Hgb 14.3 (14.0-18.0) g/dl Hct 42.9 (42-52) % MCV 87.4 (80-98) fL MCH 29.1 (27.0-33.0) pg MCHC 33.3 (31.0-36.0) g/dl RDW 11.9 (11.0-16.0) % Plt Count 331 (160-400) X10*3/uL MPV 10.1 (9.4-12.4) fL Immature Gran % (Auto) 0.3 (0.0-0.4) % Neut % (Auto) 78.5 H (45-73) % Lymph % (Auto) 14.2 L (20-40) % [place] % (Auto) 6.5 (2-11) % Eos % (Auto) 0.3 (0-4) % Baso % (Auto) 0.2 (0-2) % Lymph # (Auto) 1.7 (1.2-4.9) X10*3/uL [place] # (Auto) 0.8 (0.1-1.2) X10*3/uL Eos # (Auto) 0.0 (0.0-0.4) X10*3/uL Baso # (Auto) 0.0 (0.0-0.2) X10*3/uL Abs Immat Gran (auto) 0.04 H (0.00-0.03) X10*3/uL Absolute Neuts (auto) 9.4 H (2.0-8.3) X10*3/uL Absolute Nucleated RBC 0.000 (0.0-0.012) X10*3/uL Nucleated RBC % (auto) 0.0 (0.0-0.2) /100WBC Urine Color STRAW Urine Appearance HAZY Urine pH 6.0 (5.0-8.0) Ur Specific [place] >= 1.030 H (1.005-1.025) Urine Protein 1+ H (NEG-TRACE) MG/DL Urine Glucose (UA) NEG (NEG) MG/DL Urine Ketones 5 (NEG) MG/DL Urine Blood 3+ H (NEG) Urine Nitrite NEG (NEG) Ur Leukocyte Esterase NEG (NEG) Discharge Plan Discharge Clinical Impression: Kidney stone on right side Patient Disposition: Home, Self-Care Instructions: Kidney Stones (ED), How to Strain Your Urine (ED) Prescriptions: New oxycodone-acetaminophen [Percocet] 5-325 mg tablet 1 tab PO Q6H PRN (Reason: pain) Qty: 10 RF: 0 tamsulosin [Flomax] 0.4 mg capsule 0.4 mg PO DAILY Qty: 10 RF: 0 No Action acetaminophen-codeine 300-30 mg tablet 1 tab PO Q4-6H PRN (Reason: pain) 7 Days Qty: 20 RF: 0 famotidine [Pepcid] 20 mg tablet 20 mg PO DAILY Qty: 14 RF: 0 alum-mag hydroxide-simeth [Maalox Advanced] 200-200-20 mg/5 mL suspension 5 ml PO 5XD PRN (Reason: indigestion) Qty: 30 RF: 0 albuterol sulfate 90 mcg/actuation HFA aerosol inhaler 2 puff PO Q4-6H PRN (Reason: Shortness Of Breath) RF: 0 omeprazole 20 mg capsule,delayed release(DR/EC) 20 mg PO DAILY Qty: 30 RF: 11
[2021-05-25] MEDS: ondansetron HCL 4 MG/2 ML VIAL IVPUSH (01:29)
[2021-05-25] MEDS: Ketorolac Tromethamine 15 MG/ML VIAL 30 MG IVPUSH (01:30)
[2021-05-25 01:32] VITALS: RESP 18
[2021-05-25] MEDS: HYDROmorphone HCl 1 MG/ML SYRINGE IVPUSH (01:32)
[2021-05-25] MEDS: 0.9 % Sodium Chloride 1,000 ML 999 ML IV (01:33)
[2021-05-25 01:41] LABS: Basophils Percent Auto 0.2 % (0-2); Eosinophils Percent Auto 0.3 % (0-4); Hematocrit 42.9 % (42-52); Hemoglobin 14.3 g/dl (14.0-18.0); Imm Gran Abs Auto 0.04 X10*3/uL (0.00-0.03); Imm Gran Pct Auto 0.3 % (0.0-0.4); Lymphocytes Absolute Auto 1.7 X10*3/uL (1.2-4.9); Lymphocytes Percent Auto 14.2 % (20-40); MANUAL DIFF FLAG NO; Mean Corpuscular HGB Conc 33.3 g/dl (31.0-36.0); Mean Corpuscular Hemoglobin 29.1 pg (27.0-33.0); Mean Corpuscular Volume 87.4 fL (80-98); Mean Platelet Volume 10.1 fL (9.4-12.4); Monocytes Absolute Auto 0.8 X10*3/uL (0.1-1.2); Monocytes Percent Auto 6.5 % (2-11); Neutrophils Absolute Auto 9.4 X10*3/uL (2.0-8.3); Neutrophils Percent Auto 78.5 % (45-73); Platelet Count 331 X10*3/uL (160-400); Red Blood Count 4.91 X10*6/uL (4.60-5.80); Red Cell Distribution Width 11.9 % (11.0-16.0); White Blood Count 11.9 X10*3/uL (4.8-10.8)
[2021-05-25 01:45] LABS: Appearance Urine HAZY; Color Urine STRAW; Glucose Urine UA NEG (NEG); Leukocyte Esterase Urine NEG (NEG); Nitrite Urine NEG (NEG); Specific Gravity - Urine >= 1.030 (1.005-1.025); UACC Culture Trigger NO; Urine Blood 3+ (NEG); Urine Ketones 5 MG/DL (NEG); Urine Protein 1+ MG/DL (NEG-TRACE)
[2021-05-25 01:59] LABS: Alanine Aminotransferase 43 U/L (0-40); Albumin Level 4.7 g/dL (3.5-5.0); Alkaline Phosphatase 94 U/L (39-117); Anion Gap 16 (12-20); Aspartate Amino Transferase 21 U/L (5-37); Bilirubin Total 0.4 mg/dL (0.0-1.0); Blood Urea Nitrogen 15 mg/dL (9-16); Carbon Dioxide 24 mmol/L (22-29); Chloride 104 mmol/L (96-108); Creatinine Clr Calc Pharmacy 122.1; Estimated Glomerular Filt Rate > 60; Glucose Random 117 mg/dL (60-115); Potassium 4.6 mmol/L (3.3-5.1); Sodium 139 mmol/L (135-145); Total Protein 7.7 g/dL (6.5-8.0)
[2021-05-25 02:09] LABS: Mucus Urine 3+ /LPF; RBC Urine 50-75 /HPF (0); Squamous Epithelial Cell Urine TRACE /LPF; WBC Urine 0-2 /HPF (0-4)
[2021-05-25 02:10] LABS: Calcium Oxalate Crystals Urine TRACE /LPF
[2021-05-25 03:00] VITALS: BP 143/84; PULSE 83; RESP 18; O2SAT 97
== END 2021-05-25 03:02 | disposition home or self-care (01) ==
PROVIDERS: Emergency Provider Emergency Medicine; PCP Nurse Practitioner Primary Care
DX: N20.0 Calculus of kidney (principal); R33.9 Retention of urine, unspecified; R30.0 Dysuria; Z79.899 Other long term (current) drug therapy
CPT/HCPCS: 36415; 74176; 80053; 81001; 85025; 96361; 96374; 96375; 99283; 99284; J1170; J1885; J2405

== ENCOUNTER → 2021-06-23 09:15 | Outpatient (BNVA) | payer OTHER, SELFPAY | PROVIDERS: Visit Provider Physician Assistant | DX: Z98.890 Other specified postprocedural states (principal); Z47.1 Aftercare following joint replacement surgery; Z86.19 Personal history of other infectious and parasitic diseases; J30.2 Other seasonal allergic rhinitis | CPT/HCPCS: 99212 ==

== ENCOUNTER 2021-07-03 10:00 | Outpatient (RCR) | payer OTHER, SELFPAY ==
--- NOTE | 2021-05-15 09:29 | MHC.PT.EP ---
[facility] Office [place] Office [place] Office [address] Madelyn Cohen [address] [phone] F: [phone] F: [phone] F: [phone] F: [phone] Physical Therapy Plan of Care Date of Evaluation: Date of Surgery: 04/17/21 Diagnosis: Assessment: Patient is a 40 year old R handed male who presents with s/s consistent with R medial meniscectomy with AMIRAH. He works with daily job demands including maintenance work. Patient past medical history includes L knee surgery for torn ACL. Current impairments include pain, ROM, strength, safety, independence, activity tolerance and functional mobility. Functional limitations include decreased ability to walk, stand, transfer, negotiate stairs, and perform weight bearing activities.. Patient is motivated with good rehab potential. Skilled PT will address impairments and functional limitations in order to achieve goals. Before progressing in therapy, he will follow up with PA to be cleared as a result of seemingly present lateral quad deformity. Frequency and Duration: The patient will be seen 2x/week for 6 weeks Short Term Goals: I with HEP - 2 weeks AROM 0-130 - pain free - 3 weeks Strength 4/5 grossly - 3 weeks Normal gait mechanics - 3 weeks Wound/Ostomy Nurse Goals: Strength 4+/5 - 5 weeks LEFS 64/80 - 6 weeks Step through on stairs without hesitation - 6 weeks Pain free squatting - 6 weeks Treatment Plan: Modalities to reduce pain, spasms and effusion. Manual therapy to restore motion and function. Therapeutic exercise to improve strength and flexibility. Neuromuscular re-education for posture and balance. Therapeutic activities to return to functional activities of daily living. Electronically signed by: Juan José Workman, PT Please sign and return to therapist. Thank you for your referral.
--- NOTE | 2021-08-08 10:35 | MHC.PT.DC ---
[facility] [place] Office [place] Office [place] Office [address] [phone] F: [phone] F: [phone] F: [phone] F: [phone] Physical Therapy Discharge Report Diagnosis: s/p arthroscopic R knee surgery Date of Surgery: 04/17/21 Date of Evaluation: 05/15/21 Date of Discharge: 07/09/21 Treatments to Date: 13 Cancellations to Date: 0 No Shows to Date: 0 Discharge Status: Independent with HEP Discharge Summary: Pt I with HEP. Pt progressed with ROM and strength. Pt cont with pinch med patella with ext. Pt RTW 07/07. Electronically signed by: Juan José Workman PT Please sign and return to therapist. Thank you for your referral.
== END 2021-08-08 10:36 | disposition home or self-care (01) ==
LOC: HO.PTCHIC 10:00
PROVIDERS: PCP Nurse Practitioner Primary Care; Visit Provider Physician Assistant
DX: S83.231D Complex tear of medial meniscus, current injury, right knee, subsequent encounter (principal); Z98.890 Other specified postprocedural states
CPT/HCPCS: 97110; 97140; 97161; 97530

== ENCOUNTER 2022-07-28 11:41 | Outpatient (REF) | payer OTHER, SELFPAY ==
[2022-07-28 15:04] LABS: Influenza A PCR NEGATIVE (Negative); Influenza B PCR NEGATIVE (Negative); Resp Syncy Virus RNA Qual PCR NEGATIVE (Negative); SARS COV2 PCR INHOUSE NEGATIVE (Negative)
== END 2022-07-28 11:42 | disposition home or self-care (01) ==
LOC: HO.LAB 11:41
PROVIDERS: Visit Provider Internal Medicine
DX: R09.89 Other specified symptoms and signs involving the circulatory and respiratory systems (principal); Z20.822 Contact with and (suspected) exposure to COVID-19
CPT/HCPCS: 0241U